=== PATIENT | female | born 1950 | race Caucasian/White ===

== ENCOUNTER 2018-02-12 07:59 | Outpatient (REF) | payer MEDICARE, BC, SELFPAY ==
[2018-02-12 22:15] LABS: Anion Gap 6.4 mmol/L (3-11); BUN 11 mg/dL (7-18); CO2 30.6 mmol/L (21.0-32.0); CREATININE 0.66 mg/dL (0.55-1.02); Chloride 101 mmol/L (98-107); Cholesterol 255 mg/dL (50-200); Glucose 104 mg/dL (70-100); HDL Cholesterol 47 mg/dL (40-60); LDL CHOLESTEROL 168 mg/dL (<100); Potassium 4.3 mmol/L (3.5-5.1); Sodium 138 mmol/L (136-145); Triglyceride 244 mg/dL (30-150)
== END 2018-02-12 08:19 ==
LOC: NCHCN 07:59
PROVIDERS: PCP Internal Medicine; Visit Provider Internal Medicine
DX: E78.00 Pure hypercholesterolemia, unspecified (principal)
CPT/HCPCS: 80048; 80061; 83721

== ENCOUNTER 2019-01-26 08:32 | Outpatient (REF) | payer MEDICARE, BC, SELFPAY ==
[2019-01-26 21:44] LABS: Anion Gap 9.1 mmol/L (3-11); BUN 10 mg/dL (7-18); CO2 27.9 mmol/L (21.0-32.0); CREATININE 0.69 mg/dL (0.55-1.02); Calcium 9.5 mg/dL (8.5-10.1); Calculated LDL 62 mg/dL; Chloride 101 mmol/L (98-107); Cholesterol 148 mg/dL (50-200); Glucose 111 mg/dL (70-100); HDL Cholesterol 54 mg/dL (40-60); Potassium 4.1 mmol/L (3.5-5.1); Sodium 138 mmol/L (136-145); Triglyceride 161 mg/dL (30-150)
== END 2019-01-26 08:52 ==
LOC: NCHCN 08:32
PROVIDERS: PCP Internal Medicine; Visit Provider Internal Medicine
DX: E78.00 Pure hypercholesterolemia, unspecified (principal); R73.01 Impaired fasting glucose; I10 Essential (primary) hypertension
CPT/HCPCS: 80048; 80061

== ENCOUNTER 2020-02-19 08:20 | Outpatient (REF) | payer MEDICARE, BC, SELFPAY ==
[2020-02-19 21:10] LABS: ALT 36 U/L (14-59); AST 23 U/L (15-37); Albumin 3.6 g/dL (3.4-5.0); Alkaline Phosphatase 97 U/L (46-116); Bilirubin, Direct 0.16 mg/dL (0.00-0.20); Bilirubin, Total 0.6 mg/dL (0.2-1.0); Total Protein 7.1 g/dL (6.4-8.2)
[2020-02-19 22:03] LABS: BUN 13 mg/dL (7-18); Calcium 9.3 mg/dL (8.5-10.1); Chloride 99 mmol/L (98-107); Glucose 121 mg/dL (74-106); Potassium 3.7 mmol/L (3.5-5.1); Sodium 136 mmol/L (136-145)
[2020-02-19 22:10] LABS: Hemoglobin A1C 5.7 % (<5.7)
== END 2020-02-19 08:40 ==
LOC: NCHCN 08:20
PROVIDERS: PCP Internal Medicine; Visit Provider Internal Medicine
DX: R73.03 Prediabetes (principal); I10 Essential (primary) hypertension; Z87.19 Personal history of other diseases of the digestive system
CPT/HCPCS: 80048; 80076; 83036

== ENCOUNTER 2021-01-03 18:03 | Outpatient (REF) | payer MEDICARE, BC, SELFPAY ==
[2021-01-05 17:00] LABS: COVID-19 RT-PCR UVMMC Result Negative (Negative)
== END 2021-01-03 18:04 | disposition home or self-care (01) ==
LOC: NCHCN 18:03
PROVIDERS: PCP Internal Medicine; Visit Provider Nurse Practitioner Family
DX: Z20.822 Contact with and (suspected) exposure to COVID-19 (principal); J06.9 Acute upper respiratory infection, unspecified
CPT/HCPCS: U0003

== ENCOUNTER 2021-04-27 08:55 | Outpatient (REF) | payer MEDICARE, BC, SELFPAY ==
[2021-04-27 14:54] LABS: Hemoglobin A1C 5.5 % (<5.7)
[2021-04-27 14:55] LABS: ALT 31 U/L (14-59); AST 23 U/L (15-37); Albumin 3.7 g/dL (3.4-5.0); Alkaline Phosphatase 91 U/L (46-116); Anion Gap 5.6 mmol/L (3-11); BUN 11 mg/dL (7-18); Bilirubin, Total 0.6 mg/dL (0.2-1.0); CO2 30.4 mmol/L (21.0-32.0); CREATININE 0.6 mg/dL (0.55-1.02); Calcium 9.3 mg/dL (8.5-10.1); Chloride 101 mmol/L (98-107); Glucose 105 mg/dL (74-106); Potassium 4.3 mmol/L (3.5-5.1); Sodium 137 mmol/L (136-145); Total Protein 6.8 g/dL (6.4-8.2)
== END 2021-04-27 08:56 | disposition home or self-care (01) ==
LOC: NCHCN 08:55
PROVIDERS: PCP Internal Medicine; Visit Provider Internal Medicine
DX: R73.03 Prediabetes (principal); I10 Essential (primary) hypertension
CPT/HCPCS: 80053; 83036

== ENCOUNTER 2022-04-16 11:45 | Outpatient (REF) | payer MEDICARE, SELFPAY ==
[2022-04-16 15:03] LABS: Anion Gap 6.7 mmol/L (3-11); BUN 10 mg/dL (7-18); CO2 29.3 mmol/L (21.0-32.0); CREATININE 0.7 mg/dL (0.55-1.02); Calcium 9.6 mg/dL (8.5-10.1); Calculated LDL 68 mg/dL (<100); Chloride 101 mmol/L (98-107); Cholesterol 159 mg/dL (<200); Estimated GFR 91.83 (mL/min/1.73m2); Glucose 121 mg/dL (74-106); HDL Cholesterol 60 mg/dL (40-60); Potassium 4.2 mmol/L (3.5-5.1); Sodium 137 mmol/L (136-145); Triglyceride 155 mg/dL (<150)
[2022-04-16 15:42] LABS: Hemoglobin A1C 5.5 % (<5.7)
== END 2022-04-16 11:46 | disposition home or self-care (01) ==
LOC: NCHCN 11:45
PROVIDERS: PCP Internal Medicine; Visit Provider Internal Medicine
DX: E78.00 Pure hypercholesterolemia, unspecified (principal); R73.03 Prediabetes; I10 Essential (primary) hypertension
CPT/HCPCS: 80048; 80061; 83036

== ENCOUNTER 2022-10-05 10:41 | Outpatient (REF) | payer MEDICARE, SELFPAY ==
[2022-10-05 16:51] LABS: Anion Gap 3.1 mmol/L (3-11); BUN 12 mg/dL (7-18); CO2 29.9 mmol/L (21.0-32.0); CREATININE 0.7 mg/dL (0.55-1.02); Calcium 9.4 mg/dL (8.5-10.1); Chloride 101 mmol/L (98-107); Estimated GFR 91.26 (mL/min/1.73m2); Glucose 122 mg/dL (74-106); Potassium 4.4 mmol/L (3.5-5.1); Sodium 134 mmol/L (136-145)
== END 2022-10-05 10:42 | disposition home or self-care (01) ==
LOC: NCHCN 10:41
PROVIDERS: PCP Internal Medicine; Visit Provider Family Medicine
DX: I10 Essential (primary) hypertension (principal)
CPT/HCPCS: 80048

== ENCOUNTER 2023-05-01 20:50 | Outpatient (REF) | payer MEDICARE, SELFPAY ==
[2023-05-01 21:17] LABS: Anion Gap 3.2 mmol/L (3-11); BUN 15 mg/dL (7-18); CO2 30.8 mmol/L (21.0-32.0); CREATININE 0.8 mg/dL (0.55-1.02); Calcium 9.2 mg/dL (8.5-10.1); Chloride 98 mmol/L (98-107); Estimated GFR 77.75 (mL/min/1.73m2); Glucose 154 mg/dL (74-106); Potassium 4.4 mmol/L (3.5-5.1); Sodium 132 mmol/L (136-145)
== END 2023-05-01 20:51 | disposition home or self-care (01) ==
LOC: NCHCN 20:50
PROVIDERS: PCP Internal Medicine; Visit Provider Internal Medicine
DX: I10 Essential (primary) hypertension (principal)
CPT/HCPCS: 80048

== ENCOUNTER 2023-05-29 08:46 | Outpatient (REF) | payer MEDICARE, SELFPAY ==
--- OUTSIDE RECORDS SUMMARY | 2023-05-29 08:49 | XMS_ITS | CCD ---
Author Name Unknown Address [address] [place] [phone] Organization Unknown Address [address], [place] [id number] Care Team Providers Care Cloth Shrinking Supervisor Name Role Phone BRAXTON ARZOLA Attending Physician [phone] BRAXTON ARZOLA Rounding (Secondary) Physici an [phone] Vital Signs Unknown or Not Available. Allergies Allergy Code Allergy Type Reaction Status SULFA (sulfonamide) 0 Drug allergy UNKNOWN Act ede Procedures Unknown or Not Available. History of Immunizations Unknown or Not Available. Problems Unknown or Not Available. Results Unknown or Not Available. Active Medications Unknown or Not Available. Medications Administered During Visit Unknown or Not Available. Encounters Encounter Diagnosis Diagnosis Code Start Date Other specific arthropathies , not elsewhere classified, right shoulder [id number] 09/26/2022 Social History Smoking Status Code Start Date End Date Former smoker [id number] 05/13/1966 05/13/1970 Patient Decision Aids Unknown or Not Available. Discharge Instructions You were admitted to [facility] on 09/26/2022 00:00 with a principal diagnosis of Other specific arthropathies, not elsewhere classified, right shoulder You were discharged from [facility] on 09/26/2022 00:00 Should you have any questions prior to discharge, please contact a member of your healthcare team. If you have left the hospital and have any questions, please contact your primary care physician. Chief Complaint and Reason For Visit Unknown or Not Available. Function Status Unknown or Not Available. Plan of Care Unknown or Not Available. Referral/Transition of Care Unknown or Not Available.
--- OUTSIDE RECORDS SUMMARY | 2023-05-29 08:49 | XMS_ITS | CCD ---
Author Name Unknown Address [address] [place] [address] [phone] Organization Unknown Address [address] [place] [address] [id number] Care Team Providers Care Chute Worker Name Role Phone WILDA BORJAS Attending Physician [phone] Vital Signs Unknown or Not Available. Allergies [...] Encounters Encounter Diagnosis Diagnosis Code Start Date Pain in left knee [id number] 09/19/2021 Social History Smoking Status Code Start Date End Date Former smoker [id number] 05/13/1966 05/13/1970 Patient Decision Aids Unknown or Not Available. Discharge Instructions You were admitted to [facility] on 09/19/2021 08:38 with a principal diagnosis of Pain in left knee You were discharged from [facility] on 01/29/2022 10:09 Should you have any questions prior to [...]
--- OUTSIDE RECORDS SUMMARY | 2023-05-29 08:49 | XMS_ITS | CCD ---
Author Name Unknown Address [address] [place] [address] [id number] Organization Unknown Address [address] [place], [place] [id number] Care Team Providers Care Chainstitch Seat Joiner Name Role Phone THELMA LIRA Attending Physician [phone] THELMA LIRA Rounding (Secondary) Physicia n [phone] Vital Signs Unknown or Not Available. Allergies [...] Encounters Encounter Diagnosis Diagnosis Code Start Date Metatarsalgia, right foot [id number] 2022 Social History Smoking Status Code Start Date End Date Former smoker [id number] 05/13/1966 05/13/1970 Patient Decision Aids Unknown or Not Available. Discharge Instructions You were admitted to [facility] on 10/10/2022 07:55 with a principal diagnosis of Metatarsalgia, right foot You were discharged from [facility] on 10/10/2022 00:00 Should you have any questions prior [...]
[2023-05-29 14:28] LABS: Anion Gap 6.4 mmol/L (3-11); BUN 14 mg/dL (7-18); CO2 29.6 mmol/L (21.0-32.0); CREATININE 0.8 mg/dL (0.55-1.02); Calcium 9.8 mg/dL (8.5-10.1); Chloride 100 mmol/L (98-107); Estimated GFR 77.75 (mL/min/1.73m2); Glucose 134 mg/dL (74-106); Potassium 4.4 mmol/L (3.5-5.1); Sodium 136 mmol/L (136-145)
== END 2023-05-29 08:47 | disposition home or self-care (01) ==
LOC: NCHCN 08:46
PROVIDERS: PCP Internal Medicine; Visit Provider Internal Medicine
DX: E87.1 Hypo-osmolality and hyponatremia (principal)
CPT/HCPCS: 80048

== ENCOUNTER 2023-06-14 15:31 | Outpatient (REF) | payer MEDICARE, SELFPAY ==
[2023-06-14 14:27] LABS: HCT 45.9 % (36.0-46.0); HGB 16.1 g/dL (11.2-15.7); MCH 31.4 pg (27.0-33.0); MCHC 35.1 % (32.0-36.0); MCV 90 fL (80-95); MPV 10.4 fL (8.0-11.0); Platelet Count 263 10^3/uL (130-400); RBC 5.12 10^6/uL (3.93-5.22); RDW 11.6 % (11.7-14.6); RDW-SD 37.8 fL; WBC 6.84 10^3/uL (4.4-10.8)
[2023-06-14 14:41] LABS: ALT 34 U/L (14-59); AST 28 U/L (15-37); Albumin 3.7 g/dL (3.4-5.0); Alkaline Phosphatase 91 U/L (46-116); Anion Gap 4.2 mmol/L (3-11); BUN 10 mg/dL (7-18); Bilirubin, Total 0.8 mg/dL (0.2-1.0); CO2 30.8 mmol/L (21.0-32.0); CREATININE 0.7 mg/dL (0.55-1.02); Calcium 10.1 mg/dL (8.5-10.1); Calculated LDL 60 mg/dL (<100); Chloride 101 mmol/L (98-107); Cholesterol 147 mg/dL (<200); Estimated GFR 91.26 (mL/min/1.73m2); Glucose 113 mg/dL (74-106); HDL Cholesterol 64 mg/dL (40-60); Potassium 4.8 mmol/L (3.5-5.1); Sodium 136 mmol/L (136-145); Total Protein 7.8 g/dL (6.4-8.2); Triglyceride 116 mg/dL (<150)
[2023-06-14 14:50] LABS: Hemoglobin A1C 5.5 % (<5.7)
== END 2023-06-14 15:32 | disposition home or self-care (01) ==
LOC: NCHCN 15:31
PROVIDERS: PCP Internal Medicine; Visit Provider Internal Medicine
DX: R73.03 Prediabetes (principal)
CPT/HCPCS: 80053; 80061; 85027; 83036

== ENCOUNTER 2023-12-11 08:07 | Outpatient (REF) | payer MEDICARE, SELFPAY ==
[2023-12-11 15:14] LABS: HCT 41.9 % (36.0-46.0); HGB 14.8 g/dL (11.2-15.7); MCH 31.9 pg (27.0-33.0); MCHC 35.3 % (32.0-36.0); MCV 90 fL (80-95); MPV 10.3 fL (8.0-11.0); Platelet Count 253 10^3/uL (130-400); RBC 4.64 10^6/uL (3.93-5.22); RDW 11.7 % (11.7-14.6); RDW-SD 38.5 fL; WBC 6.87 10^3/uL (4.4-10.8)
[2023-12-11 16:09] LABS: Anion Gap 8.4 mmol/L (3-11); BUN 11 mg/dL (7-18); CO2 27.6 mmol/L (21.0-32.0); CREATININE 0.8 mg/dL (0.55-1.02); Calcium 9.5 mg/dL (8.5-10.1); Chloride 102 mmol/L (98-107); Estimated GFR 77.27 (mL/min/1.73m2); Glucose 132 mg/dL (74-106); Potassium 4.5 mmol/L (3.5-5.1); Sodium 138 mmol/L (136-145)
== END 2023-12-11 08:08 | disposition home or self-care (01) ==
LOC: NCHCN 08:07
PROVIDERS: PCP Internal Medicine; Visit Provider Internal Medicine
DX: D75.1 Secondary polycythemia (principal); I10 Essential (primary) hypertension
CPT/HCPCS: 80048; 85027

== ENCOUNTER 2024-08-17 10:20 | Outpatient (REF) | payer MEDICARE, SELFPAY ==
[2024-08-17 15:34] LABS: HCT 45.1 % (36.0-46.0); MCH 32.1 pg (27.0-33.0); MCHC 35.5 % (32.0-36.0); MCV 91 fL (80-95); MPV 10.2 fL (8.0-11.0); Platelet Count 285 10^3/uL (130-400); RBC 4.98 10^6/uL (3.93-5.22); RDW 11.8 % (11.7-14.6); RDW-SD 38.6 fL; WBC 6.38 10^3/uL (4.4-10.8)
[2024-08-17 16:14] LABS: ALT 34 U/L (14-59); AST 29 U/L (15-37); Albumin 3.9 g/dL (3.4-5.0); Alkaline Phosphatase 104 U/L (46-116); Anion Gap 7.7 mmol/L (3-11); BUN 9 mg/dL (7-18); Bilirubin, Total 0.8 mg/dL (0.2-1.0); CO2 29.3 mmol/L (21.0-32.0); CREATININE 0.7 mg/dL (0.55-1.02); Calcium 10.3 mg/dL (8.5-10.1); Calculated LDL 62 mg/dL (<100); Chloride 100 mmol/L (98-107); Cholesterol 158 mg/dL (<200); Estimated GFR 90.14 (mL/min/1.73m2); Glucose 128 mg/dL (74-106); HDL Cholesterol 65 mg/dL (>or=50); Potassium 4.7 mmol/L (3.5-5.1); Sodium 137 mmol/L (136-145); Total Protein 7.9 g/dL (6.4-8.2); Triglyceride 159 mg/dL (<150)
[2024-08-17 16:31] LABS: Hemoglobin A1C 5.6 % (<5.7)
== END 2024-08-17 10:21 | disposition home or self-care (01) ==
LOC: NCHCN 10:20
PROVIDERS: PCP Internal Medicine; Visit Provider Internal Medicine
DX: Z13.220 Encounter for screening for lipoid disorders (principal); R73.03 Prediabetes
CPT/HCPCS: 80053; 80061; 85027; 83036

== ENCOUNTER 2024-11-23 14:02 | Outpatient (REF) | payer MEDICARE, SELFPAY ==
[2024-11-23 16:15] LABS: HCT 46.2 % (36.0-46.0); HGB 15.7 g/dL (11.2-15.7); MCH 31.1 pg (27.0-33.0); MCHC 34.0 % (32.0-36.0); MCV 92 fL (80-95); MPV 10.2 fL (8.0-11.0); Platelet Count 264 10^3/uL (130-400); RBC 5.05 10^6/uL (3.93-5.22); RDW 11.8 % (11.7-14.6); RDW-SD 39.4 fL; WBC 7.06 10^3/uL (4.4-10.8)
[2024-11-23 16:50] LABS: Anion Gap 6.0 mmol/L (3-11); BUN 14 mg/dL (7-18); CO2 28.0 mmol/L (21.0-32.0); Calcium 9.8 mg/dL (8.5-10.1); Chloride 99 mmol/L (98-107); Estimated GFR 90.14 (mL/min/1.73m2); Glucose 130 mg/dL (74-106); Potassium 4.4 mmol/L (3.5-5.1); Sodium 133 mmol/L (136-145); Vitamin D 25 Total 47 ng/mL (30-100)
== END 2024-11-23 14:03 | disposition home or self-care (01) ==
LOC: NCHCN 14:02
PROVIDERS: PCP Internal Medicine; Visit Provider Internal Medicine
DX: E83.52 Hypercalcemia (principal); D75.1 Secondary polycythemia
CPT/HCPCS: 80048; 82306; 85027; 83970

== ENCOUNTER 2025-03-15 11:17 | Outpatient (REF) | payer MEDICARE, SELFPAY ==
[2025-03-15 16:11] LABS: HCT 41.6 % (36.0-46.0); HGB 14.6 g/dL (11.2-15.7); MCH 31.5 pg (27.0-33.0); MCHC 35.1 % (32.0-36.0); MCV 90 fL (80-95); MPV 10.1 fL (8.0-11.0); Platelet Count 245 10^3/uL (130-400); RBC 4.64 10^6/uL (3.93-5.22); RDW 11.9 % (11.7-14.6); RDW-SD 38.1 fL; WBC 9.13 10^3/uL (4.4-10.8)
[2025-03-15 16:24] LABS: Anion Gap 4.7 mmol/L (3-11); BUN 11 mg/dL (7-18); CO2 30.3 mmol/L (21.0-32.0); Calcium 9.6 mg/dL (8.5-10.1); Chloride 97 mmol/L (98-107); Glucose 99 mg/dL (74-106); Potassium 4.7 mmol/L (3.5-5.1); Sodium 132 mmol/L (136-145)
== END 2025-03-15 11:18 | disposition home or self-care (01) ==
LOC: NCHCN 11:17
PROVIDERS: PCP Internal Medicine; Visit Provider Internal Medicine
DX: D75.1 Secondary polycythemia (principal); E87.1 Hypo-osmolality and hyponatremia
CPT/HCPCS: 80048; 85027

== ENCOUNTER 2025-04-12 21:18 | Outpatient (REF) | payer MEDICARE, SELFPAY ==
[2025-04-12 22:01] LABS: Abs Immature Grans 0.02 10^3/uL (0.0-0.06); HCT 41.7 % (36.0-46.0); HGB 14.4 g/dL (11.2-15.7); Immature Grans % 0.2 %; MCH 30.9 pg (27.0-33.0); MCHC 34.5 % (32.0-36.0); MCV 90 fL (80-95); MPV 10.2 fL (8.0-11.0); Platelet Count 251 10^3/uL (130-400); RBC 4.66 10^6/uL (3.93-5.22); RDW 11.9 % (11.7-14.6); RDW-SD 38.6 fL; WBC 8.75 10^3/uL (4.4-10.8)
[2025-04-12 22:23] LABS: C-Reactive Protein < 0.50 mg/dL (<=0.50)
== END 2025-04-12 21:19 | disposition home or self-care (01) ==
LOC: NCHCN 21:18
PROVIDERS: PCP Internal Medicine; Visit Provider Internal Medicine
DX: R68.83 Chills (without fever) (principal)
CPT/HCPCS: 85025; 86140